=== PATIENT | male | born 1965 | race Two or more races ===

== ENCOUNTER 2018-04-07 09:58 | Emergency (ER) | payer MEDICAID ==
[~2018-04-07] VITALS: Ht 170.2 cm; Wt 77.1 kg
[2018-04-07 10:04] VITALS: BP 133/91
[2018-04-07] MEDS ORDERED: DEXAMETHASONE SOD PHOS 10MG/1ML VIAL INJ IM ONE (11:15)
[2018-04-07] MEDS ORDERED: cefTRIAXone SOD 1,000 MG VL IM ONE (11:15)
[2018-04-07] MEDS ORDERED: TETANUS-DIPTH-ACEL PERTUSSIS 0.5ML SYRG IM ONE (11:15)
[2018-04-07] MEDS ORDERED: SILVER SULFADIAZINE 1 % TOPICAL CREAM 50GM TOP ONE (11:30)
== END 2018-04-07 11:55 | disposition home or self-care (01) ==
LOC: ER 09:58
DX: S01.80XA Unspecified open wound of other part of head, initial encounter (principal); H10.89 Other conjunctivitis; X58.XXXA Exposure to other specified factors, initial encounter; Y93.89 Activity, other specified; Y99.8 Other external cause status; Y92.89 Other specified places as the place of occurrence of the external cause
CPT/HCPCS: 90471; 90715; 96372; 99284; J0696; J1100

== ENCOUNTER 2018-11-25 13:28 | Emergency (ER) | payer MEDICAID ==
[~2018-11-25] VITALS: Ht 170.2 cm; Wt 77.1 kg
[2018-11-25 14:45] VITALS: BP 139/95
[2018-11-25] MEDS ORDERED: IBUPROFEN 800 MG TAB PO ONE (14:45)
[2018-11-25] MEDS ORDERED: KETOROLAC TROMETH 60MG/2ML VIAL IM ONE (15:15)
== END 2018-11-25 15:24 | disposition home or self-care (01) ==
LOC: ER 13:32
DX: S60.011A Contusion of right thumb without damage to nail, initial encounter (principal); W23.0XXA Caught, crushed, jammed, or pinched between moving objects, initial encounter; Y93.89 Activity, other specified; Y99.8 Other external cause status; Y92.89 Other specified places as the place of occurrence of the external cause
CPT/HCPCS: 73140; 96372; 99283; J1885